=== PATIENT | female | born 1950 | race Caucasian/White ===

== ENCOUNTER 2018-08-23 08:04 | Day surgery (SDC) | payer MEDICARE ==
[2018-08-16 15:02] VITALS: BMI 28.3
--- NOTE | 2018-08-22 10:16 | HP ---
HISTORY AND PHYSICAL CHIEF COMPLAINT: Left shoulder pain. HISTORY OF PRESENT ILLNESS: The patient is a 68-year-old retired right-hand dominant female who presents with progressive left shoulder pain for the past several months. She is having pain with overhead use and at night. She has tried medications along with therapy with minimal relief. PAST MEDICAL HISTORY: Significant for hypertension and hypothyroidism. PAST SURGICAL HISTORY: Significant for hysterectomy, appendectomy, cholecystectomy, and hysterectomy along with carpal tunnel release. CURRENT MEDICATIONS: 1. Advair. 2. Aspirin. 3. Hydrochlorothiazide. 4. Levothyroxine. 5. Metoprolol. 6. Prilosec. 7. Simvastatin. 8. Valacyclovir. ALLERGIES: She notes allergies to CODEINE and ERYTHROMYCIN. FAMILY HISTORY: Significant for heart disease. SOCIAL HISTORY: Significant for previous tobacco use; however, she quit in 2011. REVIEW OF SYSTEMS: Sixteen-point review of systems otherwise reviewed and is noncontributory. PHYSICAL EXAMINATION: On examination, the patient is approximately 5 feet, 2 inches, 155 pounds of mesomorphic habitus. HEENT exam is nonfocal. Neck is supple. On examination of her left shoulder, she is tender about the anterior subacromial space. She has moderate subacromial crepitus. Active range of motion forward elevation 145 degrees, external rotation with the arm at side 65 degrees, internal rotation to L1. Motor strength is 5/5 for external rotation with arm at side, 5 minus over 5 for abduction. Langley and impingement test are positive. Her distal neurovascular exam appears intact in the left upper extremity. MRI report for the left shoulder shows a partial-thickness rotator cuff tear in addition to a possible posterior labral tear. IMPRESSION: 1. Left shoulder impingement with possible partial thickness tear. 2. Left shoulder posterior labral tear. RECOMMENDATIONS: I talked to the patient at length regarding her condition and treatment options. At this point, she is quite symptomatic and opts to proceed with surgery. We will plan to proceed with arthroscopic evaluations with possible rotator cuff debridement versus repair, possible labral debridement, possible subacromial decompression, possible biceps tenotomy. Risks and benefits were discussed at length in layman's terms. We will likely perform that as an outpatient procedure. MMODL / IJN: [id number] /
[~2018-08-23 08:04] MED LIST: ceFAZolin 1,000 MG in DEXTROSE/WATER 1 50ML.BAG IV ONE
[2018-08-23] MEDS ORDERED: LACTATED RINGERS 1,000 ML IV ONE (08:58)
[2018-08-23] MEDS ORDERED: MIDAZOLAM 2 MG/2 ML VIAL IV ONE (09:05)
[2018-08-23] MEDS ORDERED: fentaNYL (PF) 50 MCG/ML 2 ML AMP IV ONE (09:05)
--- NOTE | 2018-08-23 09:15 | P.ONQ ---
Anesthesiology Proc Note - PNB - Peripheral Nerve Block Performed Left Interscalene Single Time Out Performed: Yes Procedure Start Time: 09:06 Indication: Acute Post-Operative Pain, Analgesia Specifically requested for management of pain by DrKylee: Samuel Pastor Sedation Type: Sedate with meaningful contact maintained Preparation: Sterile Prep Position: Supine Catheter: None Needle Types: Other (see comment) (Pajunk) Needle Size: 50mm (2") Needle Gauge: 21 Technique: Ultrasound Injectate: 0.5% Ropivacaine (see comment for volume) (30 cc) Blood Aspirated: No Pain Paresthesia on Injection Noted: No Resistance on Injection: Normal Events: Uneventful and Well Tolerated
[2018-08-23] MEDS ORDERED: LIDOCAINE 1% 20 ML VIAL (10MG/ML) FOR IV START SQ ONE (09:20)
[2018-08-23] MEDS ORDERED: EPINEPHrine (PF) 1 ML in SODIUM CHLORIDE 0.9% IRRIGATIO 3,000 ML IRRIGATION ONE ×4 (09:33)
[2018-08-23] MEDS ORDERED: PROPOFOL 10 MG/ML 20 ML VIAL IV ONE (09:36)
[2018-08-23] MEDS ORDERED: GLYCOPYRROLATE 0.2 MG/ML 2 ML VIAL ONE (09:36)
[2018-08-23] MEDS ORDERED: MIDAZOLAM 2 MG/2 ML VIAL ONE (09:36)
[2018-08-23] MEDS ORDERED: fentaNYL (PF) 50 MCG/ML 2 ML AMP ONE (09:36)
[2018-08-23] MEDS ORDERED: ROPIVACAINE 5 MG/ML 30 ML VIAL ONE (09:36)
[2018-08-23] MEDS ORDERED: SUCCINYLCHOLINE CHLORIDE 100 MG/5 ML SYR IV ONE (09:36)
[2018-08-23] MEDS ORDERED: LIDOCAINE 1% INJ 10MG/ML (20 ML MDV) ONE (09:36)
--- NOTE | 2018-08-23 10:53 | P.OP ---
Date of Procedure: 08/23/18 Preoperative Diagnosis: Left rotator cuff tendinitis/impingement/posterior labral tear Postoperative Diagnosis: Same in addition to 0.5 x 0.5 cm loose body and significant bicipital tendinitis Procedure(s) Performed: Left shoulder arthroscopic subacromial decompression/biceps tenotomy/loose body removal 1 x 1 cm/posterior labral debridement Anesthesia: DERICK, regional Surgeon: Samuel Pastor Estimated Blood Loss (ml): 10 Pathology: none sent Condition: stable Disposition: PACU Indications for Procedure: The patient's a 68-year-old female who presents with left shoulder pain after a previous fall despite conservative measures. A discussion of the risks and benefits of operative intervention versus continued conservative measures was made with patient. She opted to proceed with surgery. Operative risks to include infection, neurovascular injury, development of blood clots, possible incomplete resolution of symptoms, possible worsening symptoms and need for subsequent procedures was discussed. Informed consent was obtained. Operative Findings: As below Description of Procedure: The patient was brought to the operating room, and after induction of general anesthesia was placed in a beachchair position. A preoperative interscalene block was placed by anesthesia for postoperative analgesia. The bony prominence were appropriately padded. The left upper extremity was prepped and draped in a normal fashion. The bony outlines the acromion, distal clavicle, and coracoid process were outlined with a skin marker. The glenohumeral joint was inflated with 50 mL of saline utilizing a spinal needle from posterior approach. A posterior portal was made through a 5 mm skin incision 1 cm medial and inferior to the posterior lateral border the acromion. A blunt trocar was used to easily into the joint. Diagnostic arthroscopy was performed. An anterior portals made just lateral to the coracoid process entering the joint above the subscapularis tendon. There was a small partial thickness tear involving the superior aspect of the up scapularis. This was debrided back to stable base the motorized shaver. The remaining subscapularis was intact and stable. The anterior labrum was intact and stable. The rotator cuff was intact on the undersurface of the supraspinatus and infraspinatus. On inspection of the biceps, a little significant amount of hyperemia and tendinitis was noted involving the intra-articular portion. It was elected to proceed with tenotomy at this point. This was released from the superior labrum with electrocautery and allowed to retract to the bicipital groove. A posterior labral tear was noted with a loose flap. This was debrided back to stable base with a motorized shaver. A 1 cm x 1 cm loose body was in the inferior recess and this was removed with a grasper. Minimal degenerative changes involving humeral head and glenoid was noted. The arthroscope was then placed into the subacromial space. A lateral portals made through a 5 motor skin incision 2 cm inferior to the anterolateral border of the acromion. The soft tissue on the undersurface of the acromion was debrided with a motorized shaver and electrocautery clearly defining the anterior medial and lateral borders as well as the distal clavicle. An anterior inferior acromioplasty is performed with a motorized zenaida starting anterolateral, extending this posteriorly , then extending this medially. I was able to convert to a flat acromion and this was verified on the posterior and lateral viewing portals. On inspection the rotator cuff was intact on the bursal surface. There was significant bursal thickening that was debrided with a motorized shaver. The coracoacromial ligament was detached from the anterior acromion with electrocautery. The arthroscope was then removed. The portals were closed with simple 3-0 nylon suture. A sterile dressing was applied in addition to a sling. The patient was awoken from general anesthesia and transferred to recovery room in good condition. Blood loss was estimated at 10 mL. No complications were incurred. Sponge and needle counts were correct in the case.
[2018-08-23] MEDS ORDERED: ONDANSETRON 4 MG/2 ML VIAL IVP ONE (11:05)
[2018-08-23 11:13] VITALS: TEMP 97
[2018-08-23 11:15] VITALS: RESP 16
[2018-08-23 12:07] VITALS: BP 145/66; PULSE 75
== END 2018-08-23 12:38 | disposition home or self-care (01) ==
LOC: OR 08:04
PROVIDERS: ATTEND Orthopaedic Surgery
DX: M75.42 Impingement syndrome of left shoulder (principal); S43.432A Superior glenoid labrum lesion of left shoulder, initial encounter; S46.012A Strain of muscle(s) and tendon(s) of the rotator cuff of left shoulder, initial encounter; X58.XXXA Exposure to other specified factors, initial encounter; M24.012 Loose body in left shoulder; M75.22 Bicipital tendinitis, left shoulder; I10 Essential (primary) hypertension; E03.9 Hypothyroidism, unspecified; J44.9 Chronic obstructive pulmonary disease, unspecified; Z87.891 Personal history of nicotine dependence; K21.9 Gastro-esophageal reflux disease without esophagitis; G43.909 Migraine, unspecified, not intractable, without status migrainosus; Z79.890 Hormone replacement therapy; Z79.51 Long term (current) use of inhaled steroids; Z79.82 Long term (current) use of aspirin; Z79.891 Long term (current) use of opiate analgesic; Z79.1 Long term (current) use of non-steroidal anti-inflammatories (NSAID); Z79.52 Long term (current) use of systemic steroids; Z79.899 Other long term (current) drug therapy; Z88.1 Allergy status to other antibiotic agents; Z88.5 Allergy status to narcotic agent; Z88.8 Allergy status to other drugs, medicaments and biological substances
CPT/HCPCS: 64415; 29823; J2250; J2405; J0171; J2001; J3010; J2795; J0330; J2704

== ENCOUNTER 2019-10-05 18:43 | Emergency (ER) | payer MEDICARE, OTHER ==
--- NOTE | 2019-10-05 19:02 | ED ---
Fall HPI - General Chief Complaint: Fall Stated Complaint: Fall.L Shoulder Injury Time Seen by Provider: 10/05/19 18:47 Source: patient, EMS, RN notes reviewed, old records reviewed Mode of arrival: EMS - History of Present Illness Initial Comments: This is a 61-year-old female here for evaluation she presents today for evaluation status post fall patient had a trip and fall getting out of [place] to the hallway she landed on her right left shoulder also was complaining of some neck pain. No loss of consciousness no blood thinners. Patient does have history of similar fall onto her right side which resulted in a right arm fracture. Patient is having severe pain brought in by EMS he Strum give patient pain medication but she still having severe pain currently. No s ignificant medical history, patient is very anxious currently MD Complaint: fall, other (Left shoulder pain) -: minutes(s) Fall From: standing When Fall Occurred: 1 hour [employer]ODUCT DEVEL[employer] Fall Witnessed: yes, by family Place Fall Occurred: home Loss of Consciousness: none Prolonged Down Time?: no Symptoms Prior to Fall: none Location: neck Location - Extremities: Left: Shoulder Severity: severe Severity scale (1-10): 10 Quality: sharp, aching Context: tripped/slipped Associated Symptoms: denies - Related Data Home Medications Medication Instructions Recorded Confirmed Aspirin [Adult Low Dose Aspirin EC] 81 mg PO DAILY 08/16/18 08/16/18 Fluticasone/Salmeterol [Advair 1 each IH DAILY 08/16/18 08/23/18 250-50 Diskus] Hydrochlorothiazide 25 mg PO DAILY 08/16/18 08/23/18 Levothyroxine Sodium [Synthroid] 50 mcg PO DAILY 08/16/18 08/23/18 Metoprolol Succinate (ER) [Toprol 50 mg PO BID 08/16/18 08/23/18 Xl] Omeprazole 20 mg PO DAILY 08/16/18 08/23/18 Potassium Chloride ER [K-Dur 20] 20 meq PO DAILY 08/16/18 08/23/18 Previous Rx's Medication Instructions Recorded HYDROcodone/APAP 7.5-325MG [[place] 1 tab PO Q4-6H PRN #28 tab 08/23/18 7.5-325] Allergies Allergy/AdvReac Type Severity Reaction Status Date / Time codeine Allergy Rash/Hives Verified 08/16/18 14:53 erythromycin base Allergy Rash/Hives Verified 08/16/18 14:53 sumatriptan [From Imitrex] Allergy STROKE Verified 08/16/18 14:53 LIKE SYMPTOMS Review of Systems ROS Statement: Those systems with pertinent positive or pertinent negative responses have been documented in the HPI. ROS Other: All systems not noted in ROS Statement are negative. Past Medical History Past Medical History: COPD, GERD/Reflux, Hypertension, Neurologic Disorder, Thyroid Disorder Additional Past Medical History / Comment(s): MIGRAINES History of Any Multi-Drug Resistant Organisms: None Reported Past Surgical History: Appendectomy, Cholecystectomy, Hysterectomy, Orthopedic Surgery Additional Past Surgical History / Comment(s): COLONOSCOPY/EGD. LT THUMB JOINT REPLACED. RT CTR. RT TRIGGER FINGER SX Past Anesthesia/Blood Transfusion Reactions: No Reported Reaction Past Psychological History: No Psychological Hx Reported Smoking Status: Former smoker Past Alcohol Use History: None Reported Past Drug Use History: None Reported - Past Family History Brother(s) Family Medical History: Cancer Additional Family Medical History / Comment(s): SKIN Sister(s) Family Medical History: Cancer Additional Family Medical History / Comment(s): SKIN General Exam Limitations: no limitations General appearance: alert, in no apparent distress, anxious Head exam: Present: atraumatic, normocephalic, normal inspection Eye exam: Present: normal appearance, PERRL, EOMI. Absent: scleral icterus, conjunctival injection, periorbital swelling ENT exam: Present: normal exam, mucous membranes moist Neck exam: Present: normal inspection. Absent: tenderness, meningismus, lymphadenopathy Respiratory exam: Present: normal lung sounds bilaterally. Absent: respiratory distress, wheezes, rales, rhonchi, stridor Cardiovascular Exam: Present: regular rate, normal rhythm, normal heart sounds. Absent: systolic murmur, diastolic murmur, rubs, gallop, clicks GI/Abdominal exam: Present: soft, normal bowel sounds. Absent: distended, tenderness, guarding, rebound, rigid Extremities exam: Present: normal inspection, normal capillary refill. Absent: full ROM (Unable to move left shoulder), tenderness, pedal edema, joint swelling, calf tenderness Back exam: Present: normal inspection Neurological exam: Present: alert, oriented X3, CN II-XII intact Psychiatric exam: Present: normal affect, normal mood Skin exam: Present: warm, dry, intact, normal color. Absent: rash Course Vital Signs 10/05/19 10/05/19 10/05/19 18:46 19:29 19:35 Temperature 97.7 F Pulse Rate 75 75 80 Respiratory 22 17 10 L Rate Blood Pressure 163/87 135/71 88/42 O2 Sat by Pulse 99 99 93 L Oximetry 10/05/19 10/05/19 19:36 20:44 Temperature Pulse Rate 85 Respiratory 16 18 Rate Blood Pressure 165/89 O2 Sat by Pulse 100 Oximetry - Reevaluation(s) Reevaluation #1: 10/05/19 22:08 Records reviewed Reevaluation #2: 10/05/19 22:08 She was able to achieve pain control Medical Decision Making - Medical Decision Making 7 year female here for her status post fall left humerus fracture comminuted O placed in sling patient can be discharged home - Radiology Data Radiology results: report reviewed (CT of brain and C-spine negative for traumatic injury x-ray chest and left shoulder shows positive humeral head fracture), image reviewed Disposition Clinical Impression: Fall, Left humeral fracture Disposition: HOME SELF-CARE Condition: Good Instructions (If sedation given, give patient instructions): Fall Prevention for Older Adults (ED), Proximal Humerus Fracture (ED) Is patient prescribed a controlled substance at d/c from ED?: No Referrals: [facility] Loving MD [Primary Care Provider] - 1-2 days
[2019-10-05] MEDS ORDERED: HYDROmorphone 0.5 MG/0.5 ML SYRINGE IVP STA (19:15)
[2019-10-05] MEDS ORDERED: SODIUM CHLORIDE 0.9% 1,000 ML IV STA (19:15)
[2019-10-05] MEDS ORDERED: DIAZEPAM 5 MG/ML 2 ML INJ IVP STA (19:16)
[2019-10-05] MEDS ORDERED: NALOXONE 0.4 MG/ML 1 ML VIAL IV STA (19:36)
[2019-10-05] MEDS ORDERED: NALOXONE 0.4 MG/ML 1 ML VIAL IV PRN ×3 (19:36→22:59)
[2019-10-05] MEDS ORDERED: NALOXONE 0.4 MG/ML 10 ML VIAL IVP PRN (19:40)
[2019-10-05] MEDS ORDERED: ONDANSETRON 4 MG/2 ML VIAL IVP STA (20:11)
--- NOTE | 2019-10-05 21:35 | CT ---
EXAMINATION TYPE: CT brain delilah machuca con DATE OF EXAM: 10/05/2019 COMPARISON: None HISTORY: Pain after fall CT DLP: 1399.9 mGycm Automated exposure control for dose reduction was used. TECHNIQUE: CT scan of the head and cervical spine are performed without contrast. FINDINGS: There is no acute intracranial hemorrhage, mass effect, or midline shift identified. No definite acute intra-axial attenuation defect. Bilateral parietal and frontal lobe nonspecific low attenuation is noted. Entirely nonspecific, this usually reflect small vessel ischemic change. MRI c an further characterize if clinically indicated. The ventricles and sulci are within normal limits in size. The globes are intact and the visualized sinuses are clear. Cervical spine is visualized in its entirety from C1 through upper thoracic levels and demonstrates s atisfactory alignment without evidence of acute fracture or dislocation. Prevertebral soft tissue ap pears within normal limits. The C1-C2 articulation is unremarkable. IMPRESSION: 1. There is no acute fracture or dislocation evident in the cervical spine. 2. No acute intracranial hemorrhage, mass effect, or midline shift is seen.
--- NOTE | 2019-10-05 22:09 | XR ---
EXAMINATION TYPE: XR chest 1V DATE OF EXAM: 10/05/2019 COMPARISON: 10/20/2011 HISTORY: Fall. Pain. TECHNIQUE: Single frontal view of the chest is obtained. FINDINGS: There is no heart failure nor confluent pneumonic infiltrate. Costophrenic angles are mary r. There are chest leads. Thoracic aorta is atheromatous. IMPRESSION: No active cardiopulmonary disease. Normal heart. No change.
--- NOTE | 2019-10-05 22:11 | XR ---
EXAMINATION TYPE: XR shoulder complete LT DATE OF EXAM: 10/05/2019 COMPARISON: 10/05/2019 HISTORY: Shoulder pain TECHNIQUE: 3 views FINDINGS: There is comminuted fracture of the left humeral neck. There is no dislocation. The scapula is intact. Fragments are up to 1 cm. IMPRESSION: Comminuted humeral neck fracture without dislocation.
[2019-10-05 23:01] VITALS: RESP 18
[2019-10-05] MEDS ORDERED: ONDANSETRON 4 MG ODT STARTER PACK 2 TAB BTL PO STA (23:01)
[2019-10-05] MEDS ORDERED: KETOROLAC 30 MG/ML 1 ML VIAL IVP STA (23:02)
[2019-10-05 23:06] VITALS: BP 151/71; PULSE 77; TEMP 98.1
== END 2019-10-05 23:20 | disposition home or self-care (01) ==
LOC: EC 18:43
DX: S42.212A Unspecified displaced fracture of surgical neck of left humerus, initial encounter for closed fracture (principal); J44.9 Chronic obstructive pulmonary disease, unspecified; K21.9 Gastro-esophageal reflux disease without esophagitis; I10 Essential (primary) hypertension; E07.9 Disorder of thyroid, unspecified; Z79.82 Long term (current) use of aspirin; Z79.51 Long term (current) use of inhaled steroids; Z79.890 Hormone replacement therapy; Z79.899 Other long term (current) drug therapy; Z88.1 Allergy status to other antibiotic agents; Z88.5 Allergy status to narcotic agent; Z88.8 Allergy status to other drugs, medicaments and biological substances; Z87.891 Personal history of nicotine dependence; W01.0XXA Fall on same level from slipping, tripping and stumbling without subsequent striking against object, initial encounter
CPT/HCPCS: 99285; 96374; 96375 ×4; 96361; 73030; 71045; 72125; 70450; J2310; J3360; J2405; J1885; S0119; J1170

== ENCOUNTER → 2024-04-21 | Outpatient (CLI) | payer MEDICARE ==
--- NOTE | 2024-04-21 21:07 | MR ---
EXAMINATION TYPE: MR shoulder LT wo con DATE OF EXAM: 04/21/2024 COMPARISON: None HISTORY: Left shoulder pain. History of surgery TECHNIQUE: Multiplanar, multisequence imaging of the left shoulder is performed without contrast. FINDINGS: There is mild osteoarthritic change of the AC joint. There is moderate osteoarthritic change of the g lenohumeral joint where there is thinning of the articular cartilage along hypertrophic spurring of t he humeral head and mild superior subluxation. There are intrasubstance tears without retraction of the musculotendinous junctions involving the inf raspinatus and supraspinatus tendons. There is mild subacromial and subdeltoid bursitis. The subscapularis tendon is intact. The biceps tendon appears atrophic and the biceps anchor is intact. IMPRESSION: 1. 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 2. Small rim rent tears without retraction of the infraspinatus and supraspinatus tendons. 3. Mild subacromial and subdeltoid bursitis. 4. Atrophy of the biceps tendon.
== END | disposition home or self-care (01) ==
LOC: RADMRIMAIN 19:00
PROVIDERS: ATTEND Orthopaedic Surgery
DX: M19.012 Primary osteoarthritis, left shoulder (principal); M75.52 Bursitis of left shoulder; M62.512 Muscle wasting and atrophy, not elsewhere classified, left shoulder; M24.812 Other specific joint derangements of left shoulder, not elsewhere classified